=== PATIENT | female | born 1950 | race Caucasian/White ===

== ENCOUNTER 2021-01-28 17:40 | Emergency (ER) | payer OTHER ==
[~2021-01-28] VITALS: Ht 152.4 cm; Wt 63.0 kg
[~2021-01-28 17:40] MED LIST: ASPIR 8181 MG; ESTRADIOL; ETODOLAC500 MG; LIPITOR 40MG; LYRICA50 MG; SYNTHROID75 MCG PO
== END 2021-01-28 19:49 | disposition home or self-care (01) ==
LOC: ER 17:40
DX: M47.892 Other spondylosis, cervical region (principal); M50.30 Other cervical disc degeneration, unspecified cervical region